=== PATIENT | female | born 1980 | race Caucasian/White ===

== ENCOUNTER 2017-07-19 08:21 | Emergency (ER) | payer OTHER, SELFPAY ==
[2017-07-19 09:20] LABS: #Basophils 0.2 thou/uL (0.0-0.2); #Eosinphils 0.5 thou/uL (0.0-0.7); #Lymphocytes 3.8 thou/uL (1.20-3.40); #Monocytes 1.1 thou/uL (0.11-0.59); #Neutrophils 11.6 thou/uL (1.40-6.50); %Basophils 1.2 % (0.0-1.0); %Eosinophils 2.6 % (0.0-10.0); %Lymphocytes 22.3 % (21.0-51.0); %Monocytes 6.3 % (0.0-10.0); %Neutrophils 67.5 % (42.0-75.0); Hemoglobin 15.6 g/dL (12.0-16.0); Mean Corpuscular HGB CONC 31.7 g/dL (32.0-36.0); Mean Corpuscular Hemoglobin 27.7 pg (27.0-31.0); Mean Corpuscular Volume 87.5 fl (81.0-99.0); Platelet Count 300 thou/uL (130-400); RBC Distribution Width 14.2 % (11.5-14.5); Red Blood Cell (RBC) Count 5.61 mill/uL (4.20-5.40); White Blood Cell (WBC) Count 17.2 thou/uL (4.8-10.8)
[2017-07-19] MEDS ORDERED: cefTRIAXone\\ROCEPHIN 1 GM VIAL ONE (09:23)
[2017-07-19 09:29] LABS: Anion Gap 13 mmol/L (10-20); BUN (Urea Nitrogen) 10 mg/dL (7.0-18.7); Calc. Creatinine Clearance 0 mL/min (70-130); Calcium 9.5 mg/dL (7.8-10.44); Carbon Dioxide 21 mmol/L (22-29); Chloride 108 mmol/L (98-107); Estimated GFR-MDRD 85; Glucose 109 mg/dL (70-105); Potassium 3.9 mmol/L (3.5-5.1); Sodium 138 mmol/L (136-145)
--- NOTE | 2017-07-19 21:07 | RAD ---
CHEST TWO VIEWS: 07/19/17 Comparison is made with the 04/30/15 study. The heart is normal in size and the lungs are clear. No acute infiltrate or effusion was seen. The p neumonia seen previously has cleared. The mediastinum appears normal. IMPRESSION: No acute thoracic findings. POS: HOME
== END 2017-07-19 09:45 | disposition home or self-care (01) ==
LOC: BURERS 08:21
DX: J18.9 Pneumonia, unspecified organism (principal); F17.210 Nicotine dependence, cigarettes, uncomplicated
CPT/HCPCS: 71020; 80048; 85025; 96372; J0696

== ENCOUNTER 2018-08-16 08:00 | Emergency (ER) | payer BC, SELFPAY ==
[2018-08-16] MEDS ORDERED: Benzonatate 100 MG CAP ONE ×2 (10:00→10:07)
[2018-08-16] MEDS ORDERED: cefTRIAXone\\ROCEPHIN 2 GM VIAL ONE (10:01)
[2018-08-16] MEDS ORDERED: methylPREDNISolone Sod Succ/PF 125 MG/2 ML VIAL ONE (10:01)
[2018-08-16] MEDS ORDERED: Sodium Chloride 0.9% 100 ML ONE (10:06)
[2018-08-16 13:26] LABS: #Basophils 0.2 thou/uL (0.0-0.2); #Eosinphils 0.3 thou/uL (0.0-0.7); #Lymphocytes 1.7 thou/uL (1.20-3.40); #Neutrophils 14.7 thou/uL (1.40-6.50); %Basophils 1.1 % (0.0-1.0); %Eosinophils 1.4 % (0.0-10.0); %Lymphocytes 9.3 % (21.0-51.0); %Monocytes 5.4 % (0.0-10.0); %Neutrophils 82.8 % (42.0-75.0); ALT (SGPT) 22 U/L (8-55); AST (SGOT) 17 U/L (5-34); Albumin 4.3 g/dL (3.5-5.0); Alkaline Phosphatase 103 U/L (40-150); Anion Gap 14 mmol/L (10-20); BUN (Urea Nitrogen) 9 mg/dL (7.0-18.7); Bilirubin, Total 0.8 mg/dL (0.2-1.2); Calc. Creatinine Clearance 0 mL/min (70-130); Calcium 9.7 mg/dL (7.8-10.44); Carbon Dioxide 22 mmol/L (22-29); Chloride 104 mmol/L (98-107); Estimated GFR-MDRD 85; Globulin 3.9 g/dL (2.4-3.5); Glucose 111 mg/dL (70-105); Hemoglobin 15.7 g/dL (12.0-16.0); Mean Corpuscular HGB CONC 32.3 g/dL (32.0-36.0); Mean Corpuscular Hemoglobin 27.3 pg (27.0-31.0); Mean Corpuscular Volume 84.5 fL (78.0-98.0); Mean Platelet Volume 11.8 fL (7.4-10.4); Platelet Count 312 thou/uL (130-400); Potassium 3.9 mmol/L (3.5-5.1); Protein, Total 8.2 g/dL (6.0-8.3); RBC Distribution Width 13.5 % (11.5-14.5); Red Blood Cell (RBC) Count 5.77 mill/uL (4.20-5.40); Sodium 136 mmol/L (136-145); White Blood Cell (WBC) Count 17.8 thou/uL (4.8-10.8)
[2018-08-16 13:30] LABS: BHCG - Serum Negative (NEGATIVE); Pregs Control Background? CLEAR/WHITE (CLR/WHITE); Pregs Control Bar Appear? YES (CONTROL BAR)
[2018-08-16 13:32] LABS: Clarity Slightly Cloudy (Clear); Leukocyte Negative (Negative); Nitrite Negative (Negative); Specific Gravity, Urine 1.015 (1.005-1.030)
[2018-08-16 13:33] LABS: Bilirubin Negative (Negative); Blood, Urine Trace (Negative); Glucose, Urine (Dipstick) Negative (Negative); Protein, Urine (Dipstick) Negative (Neg-Trace); Urobilinogen 0.2 mg/dL (0.2-1.0)
[2018-08-16 13:34] LABS: Bacteria/HPF Rare-Few HPF (None Seen); RBC/HPF 0-3 HPF (0-3); Squamous Epithelial 0-3 HPF (0-3); WBC/HPF 0-3 HPF (0-3)
--- NOTE | 2018-08-16 16:27 | RAD ---
CHEST 2 VIEWS: Date: 08/16/18 Comparison made with a 07/19/17 study. There appears to be a small amount of fluid in the right costophrenic angle and there is some increas ed streaking of the right base. An early infiltrate here is suspected. The left lung is clear. There is no congestive change. The heart is unchanged in size. The trachea is midline. IMPRESSION: Suspicious for early right basilar pneumonia with a small amount of pleural fluid. CODE T. POS: HOME
== END 2018-08-16 10:00 | disposition home or self-care (01) ==
LOC: BURERS 08:00
DX: J18.9 Pneumonia, unspecified organism (principal)
CPT/HCPCS: 71046; 80053; 81003; 81015; 84703; 85025; 85379; 87804; 96365; 96375; J0696; J2930; J7050

== ENCOUNTER 2018-10-18 13:36 | Emergency (ER) | payer BC ==
[2018-10-18] MEDS ORDERED: Dexamethasone 4 MG TAB ONE (14:00)
== END 2018-10-18 14:01 | disposition home or self-care (01) ==
LOC: BURERS 13:36
DX: J06.9 Acute upper respiratory infection, unspecified (principal); F17.210 Nicotine dependence, cigarettes, uncomplicated
CPT/HCPCS: 99283; J8540

== ENCOUNTER 2021-10-13 18:15 | Emergency (ER) | payer BC ==
[2021-10-13] MEDS ORDERED: Morphine 4 MG/ML VIAL ONE (18:54)
[2021-10-13 18:56] LABS: #Basophils 0.2 thou/uL (0.0-0.2); #Eosinphils 0.7 thou/uL (0.0-0.7); #Lymphocytes 4.8 thou/uL (1.20-3.40); #Monocytes 1.6 thou/uL (0.11-0.59); #Neutrophils 12.1 thou/uL (1.40-6.50); %Eosinophils 3.5 % (0.0-10.0); %Lymphocytes 24.8 % (21.0-51.0); %Neutrophils 62.7 % (42.0-75.0); Hemoglobin 15.3 g/dL (12.0-16.0); Mean Corpuscular HGB CONC 32.5 g/dL (32.0-36.0); Mean Corpuscular Hemoglobin 28.6 pg (27.0-31.0); Mean Corpuscular Volume 88.1 fL (78.0-98.0); Mean Platelet Volume 10.8 fL (7.4-10.4); Platelet Count 312 thou/uL (130-400); RBC Distribution Width 14.3 % (11.5-14.5); Red Blood Cell (RBC) Count 5.34 mill/uL (4.20-5.40); White Blood Cell (WBC) Count 19.3 thou/uL (4.8-10.8)
[2021-10-13 19:05] LABS: Prothrombin Time 12.8 sec (12.0-14.7)
[2021-10-13 19:13] LABS: ALT (SGPT) 15 U/L (8-55); AST (SGOT) 14 U/L (5-34); Albumin 3.8 g/dL (3.5-5.0); Alkaline Phosphatase 96 U/L (40-110); Anion Gap 14 mmol/L (10-20); BUN (Urea Nitrogen) 10 mg/dL (7.0-18.7); Bilirubin, Total 0.5 mg/dL (0.2-1.2); Calc. Creatinine Clearance 0 mL/min (70-130); Calcium 9.9 mg/dL (7.8-10.44); Carbon Dioxide 22 mmol/L (22-29); Chloride 104 mmol/L (98-107); Globulin 3.2 g/dL (2.4-3.5); Glucose 117 mg/dL (70-105); Potassium 3.6 mmol/L (3.5-5.1); Sodium 136 mmol/L (136-145)
[2021-10-13] MEDS ORDERED: Enoxaparin Sodium 100 MG/ML SYRINGE ONE (19:56)
== END 2021-10-13 21:53 | disposition short-term general hospital (02) ==
LOC: BURERS 18:15
DX: M79.604 Pain in right leg (principal); F17.210 Nicotine dependence, cigarettes, uncomplicated
CPT/HCPCS: 36415; 80053; 85025; 85610; 96372; 99284; J1650; J2270

== ENCOUNTER 2023-10-01 15:20 | Emergency (ER) | payer BC ==
[2023-10-01] MEDS ORDERED: Methocarbamol 500 MG TAB ONE (15:41)
[2023-10-01] MEDS ORDERED: Ketorolac Tromethamine 60 MG/2 ML VIAL ONE (15:41)
[2023-10-01 15:43] LABS: Bilirubin Negative (Negative); Blood, Urine Trace (Negative); Clarity Clear (Clear); Glucose, Urine (Dipstick) Negative (Negative); Ketone, Urine Negative (Negative); Leukocyte Negative (Negative); Nitrite Negative (Negative); Protein, Urine (Dipstick) Negative (Neg-Trace); Specific Gravity, Urine 1.015 (1.005-1.030); Urobilinogen 0.2 mg/dL (Less than 2)
[2023-10-01 15:45] LABS: Pregnancy Test - Urine (BHCG) Negative (Negative); Pregu Control Background? CLEAR/WHITE (CLR/WHITE); Pregu Control Bar Appear? YES (CONTROL BAR); Specific Gravity 1.015 (1.002-1.036)
[2023-10-01 15:53] LABS: Bacteria/HPF None Seen HPF (None Seen); CAUTI Indications for Culture Pelvic or flank pain; RBC/HPF 0-3 HPF (0-3); Squamous Epithelial 0-3 HPF (0-3); WBC/HPF None Seen HPF (0-3)
[2023-10-01 15:54] LABS: Urine Culture Reflex No No
== END 2023-10-01 16:12 | disposition home or self-care (01) ==
LOC: BURERS 15:20
DX: M54.6 Pain in thoracic spine (principal); I10 Essential (primary) hypertension; F17.210 Nicotine dependence, cigarettes, uncomplicated; Z79.899 Other long term (current) drug therapy
CPT/HCPCS: 81001; 81025; 96372; 99283; J1885

== ENCOUNTER 2023-11-10 21:30 | Emergency (ER) | payer BC ==
[2023-11-10] MEDS ORDERED: LevoFLOXacin 500 MG TAB ONE (22:05)
[2023-11-10] MEDS ORDERED: Ketorolac Tromethamine 30 MG (1 mL) VIAL ONE (22:05)
[2023-11-10] MEDS ORDERED: Acetaminophen/Codeine 30-300mg Tablet ONE (22:06)
[2023-11-10 22:56] LABS: SARS-CoV-2 NAA Rapid Test Not Detected (NotDetected)
== END 2023-11-10 22:23 | disposition home or self-care (01) ==
LOC: BURERS 21:30
DX: J01.80 Other acute sinusitis (principal); B96.89 Other specified bacterial agents as the cause of diseases classified elsewhere; J10.1 Influenza due to other identified influenza virus with other respiratory manifestations; F17.210 Nicotine dependence, cigarettes, uncomplicated; I10 Essential (primary) hypertension
CPT/HCPCS: 96372; 99283; J1885

== ENCOUNTER 2024-07-21 15:27 | Emergency (ER) | payer BC ==
[2024-07-21] MEDS ORDERED: predniSONE 20 MG TAB ONE (15:39)
== END 2024-07-21 15:50 | disposition home or self-care (01) ==
LOC: BURERS 15:27
DX: J01.90 Acute sinusitis, unspecified (principal); B96.89 Other specified bacterial agents as the cause of diseases classified elsewhere; I10 Essential (primary) hypertension; E11.9 Type 2 diabetes mellitus without complications; F17.210 Nicotine dependence, cigarettes, uncomplicated
CPT/HCPCS: 99282; J7512